=== PATIENT | male | born 1940 | race Caucasian/White ===

== ENCOUNTER 2016-06-28 10:00 | Inpatient (IN) | payer MEDICARE, OTHER ==
[~2016-06-28] VITALS: Ht 167.6 cm; Wt 63.6 kg
--- NOTE | ~2016-06-28 | OR ---
PATIENT'S NAME: JOLEEN CURTIS [facility] AGE: 75 Y [address] ROOM: [address] [address] LOCATION: [facility] ADMIT DATE: 07/04/2016 OR/Procedure Report DISCHARGE DATE: FAMILY PHYSICIAN: Harlan Barba MD ATTENDING PHYSICIAN: Elizabeth Gan SURGEON: Elizabeth Gan MD HELPER COORDINATOR: DATE OF PROCEDURE: 07/04/2016 PREOPERATIVE DIAGNOSIS: Cervical spinal stenosis with spinal cord compression C4-C5, C5-C6, and C6-C7. POSTOPERATIVE DIAGNOSIS: Cervical spinal stenosis with spinal cord compression C4-C5, C5-C6, and C6-C7. OPERATION PROPOSED AND PERFORMED: 1. Anterior cervical microdiskectomy C4-C5, C5-C6, and C6-C7. 2. Anterior cervical fusion C4-C5, C5-C6, and C6-C7. 3. Allograft. 4. Instrumentation/plating using the Inion absorbable plate. 5. Microscope. 6. Fluoroscopy with interpretation. DESCRIPTION OF PROCEDURE: Under general anesthesia, the patient was positioned supine. The neck and upper chest were prepped and draped in the usual fashion. A curvilinear incision was then carried out extending from the anterior border of the sternomastoid muscle into the midline with a slanted incision and the platysma was incised along this line. Next, the dissection was continued in the plane between the sternomastoid muscle and the strap muscle. The strap muscle, esophagus, trachea were reflected away from the midline, brought us to the prevertebral fascia. We made sure we were working medial to the carotid artery. We got to the prevertebral fascia. Prevertebral fascia was cauterized and incised, got us to the vertebral bodies and disc spaces. The disc spaces were almost nonexistent, pretty narrow. We were able, however, to put spinal needles in the disc spaces and confirmed the C4-C5, C5-C6, and C6-C7 disc spaces. These disc spaces were marked by making an incision into them. Next, the longus colli muscles were then dissected away from their attachments to the vertebral bodies on both sides and the belt sander stone self-retaining retractors were then used for retraction making sure that the transverse blades were on the longus colli muscles. Next, starting at the C4-C5 level, we went ahead and took out as much disc material that we could take out primarily because the disk space was quite narrow and almost nonexistent. This was carried out at the three levels. Next, the distraction rods were then screwed into the C4, C5, C6, and C7 vertebral bodies starting at the C6-C7 level. We did distract the disk space, brought in the microscope PATIENT'S NAME: JOLEEN CURTIS [facility] AGE: 75 Y [address] ROOM: [address] [address] LOCATION: [facility] ADMIT DATE: 07/04/2016 OR/Procedure Report DISCHARGE DATE: FAMILY PHYSICIAN: Harlan Barba MD ATTENDING PHYSICIAN: Elizabeth Gan with the aid of the microscope. We continued moving the small disc material that we had left using initially the 1 mm Kerrison and we were able to further distract the disc space to give us more room to walking. We then continued removing the disk as we got close to the dura. There were very prominent posterior osteophytes that we had to drill through in order to be able to decompress the dura as well as the spinal cord and drilling was carried out under the microscope. After that was done, we went ahead and removed the posterior longitudinal ligament and on removing that, we could see the dura and we took out more of the portions of the vertebral body, which we will call a partial vertebrectomy both at the C6 and C7 vertebral bodies using Kerrison rongeur and also drilling some of that out. After we had finished this, we could see the dura very well as well as we could see that the dura was very well decompressed. After that was done, we did put in some westley soaked in thrombin. We then directed our attention to the C5-C6 level. A similar thing was carried out and the findings were similar except that the disk space was much narrow at this level but not significantly where the osteophyte were more prominent. I did the same thing by drilling of the osteophytes and drilling of portions of the vertebral body in order to adequately decompress the dura. A similar procedure was carried out at the C4-C5 level. After this had been done, the wound was thoroughly irrigated with bacitracin irrigation. We then got the sizer for the allograft, tapped it into the empty disc spaces and got the appropriate allograft, which we then tapped into the now empty disc spaces at the C4-C5, C5-C6, and C6-C7 levels. After that was done, I should point out that the distraction was removed. It was released after each allograft was tapped in. After that was done, the distraction rods were removed. We then removed the osteophytes from the C4-C5, C5-C6, and C6-C7 disc levels in the vertebral bodies and also removed, got the soft tissue out. After we had done that, we then used the inion template. We then were able to put that for the C5-C6 and C6-C7 levels inching it inferiorly. Unfortunately, vertebral bodies were not very tall, however we were able to manage to put a two-level inion plate to fix it onto the C5-C6 and C6-C7 levels and then what we did in was we slightly slid it down a bit so as to give us some room in the superior portion of the C5 vertebral body. We then used a much smaller plate and fixed these into this dissection. Unfortunately, the plate slanted a bit and consequently the screws that were supposed an inferior hole. An inferior hole on the right side was directly into the allograft, so we did not put any through this, but we did secure the plate with three other screws and at the end, the plate seemed quite firm as was the other plate that was used. After this was done, we got a lateral x-ray of the cervical spine under fluoroscopy, which showed that the plate as well as the grafts and screws were in good position. The wound was then thoroughly irrigated with bacitracin irrigation and closed in layers, first the platysma, then the skin. The patient tolerated the procedure well and was taken to the recovery room. PATIENT'S NAME: JOLEEN CURTIS [facility] AGE: 75 Y [address] ROOM: [address] [address] LOCATION: [facility] ADMIT DATE: 07/04/2016 OR/Procedure Report DISCHARGE DATE: FAMILY PHYSICIAN: Harlan Barba MD ATTENDING PHYSICIAN: Elizabeth Gan MD THIERRY CASTRO/modl /[id number] d: 07/04/162109 t: 07/14/16 1320, OPERATIVE SUMMARY
--- NOTE | ~2016-06-28 | CON ---
PATIENT'S NAME: JOLEEN CURTIS [facility] AGE: 75 Y [address] ROOM: [place] [address] LOCATION: [facility] ADMIT DATE: 07/04/2016 Consultation DISCHARGE DATE: 07/06/2016 FAMILY PHYSICIAN: Harlan Barba MD ATTENDING PHYSICIAN: Elizabeth Gan DATE OF CONSULTATION: 07/05/2016 REFERRING PHYSICIAN: Kenneth Allen MD REASON FOR CONSULT: Left arm numbness and tingling. HISTORY OF PRESENT ILLNESS: This is a 75-year-old male admitted to [facility] for cervical spinal stenosis, postop cervical microdiskectomy and fusion of C4 to C5, C5 to C6, and C6 to C7. Preoperatively, the patient was found to have decreased blood pressures in his left arm compared to his right arm. The patient reports having numbness and tingling in his left arm and hand that he has been experiencing for years. The patient does have a smoking history for a total of 75-year [id number] history. The patient denies any history of diabetes mellitus, TIA, claudication, edema, or nonhealing wounds. He does report having recent carotid duplex which was obtained in the outpatient setting. The patient reports that this duplex was within normal limits and he was not referred. He denies any chest pain, shortness of breath, lightheadedness, dizziness, nausea, vomiting, diarrhea, or abdominal pain. PAST MEDICAL HISTORY: Arthritis, cervical spinal stenosis. SURGICAL HISTORY: Cervical microdiskectomy and fusion. FAMILY HISTORY: Mother with lung cancer. SOCIAL HISTORY: A 1-1/4-siht-ctg-day smoker for 50 years. He also reports drinking 4 drinks per day 7 days a week. He denies any illicit drug use. CURRENT MEDICATIONS: Vitamin C 500 mg daily. ALLERGIES: NO KNOWN ALLERGIES. PATIENT'S NAME: JOLEEN CURTIS [facility] AGE: 75 Y [address] ROOM: [place] [address] LOCATION: [facility] ADMIT DATE: 07/04/2016 Consultation DISCHARGE DATE: 07/06/2016 FAMILY PHYSICIAN: Harlan Barba MD ATTENDING PHYSICIAN: Elizabeth Gan REVIEW OF SYSTEMS: Ten-point review of systems completed, positives addressed in history of presenting illness. PHYSICAL EXAMINATION: VITAL SIGNS: Temperature 97.9, heart rate 70, respiratory rate 16, blood pressure 148/79, oxygen saturations 94%. GENERAL: The patient is in no acute distress. He is alert and oriented x3 and talkative. SKIN: Warm, pink, and dry. No rashes. He does have a surgical dressing to his neck. HEENT: Head; normocephalic, atraumatic. Ears without drainage. Eyes, sclerae white and conjunctivae pink. Extraocular movements intact. PERRLA. Nose without drainage. Throat; oral mucosa pink and moist, no exudate or erythema. NECK: Not assessed due to recent surgery and present dressing. RESPIRATORY: Unlabored. CARDIOVASCULAR: Regular rate and rhythm. GASTROINTESTINAL: Soft and nontender. EXTREMITIES: Radial pulses are 2+ bilaterally when arms are rested at his side. The left radial pulse appears diminished or disappeared with elevation and manipulation of his left arm. He has no cyanosis, no ulcers, and no edema. NEUROLOGICAL: No focal deficits. Strength equal bilaterally, 5/5. IMPRESSION AND PLAN: Subclavian artery stenosis or compression. Exam findings are suggestive of a compromised subclavian artery. The patient denies pain but reports numbness and tingling. At this time, the patient is tolerating his symptoms and he is hesitant to want further intervention. We did discuss the importance of smoking cessation, and I also discussed with him multiple times that he may follow up with Dr. Allen in clinic to further evaluate the extremity, especially if the left arm symptoms become bothersome or he has further complications. From a vascular standpoint, we would recommend a daily baby aspirin. Continue to monitor the extremity for any cyanosis, increased pain, or poor wound healing. Thank you for your consultation and for allowing us to participate in the care of this patient. ANA IZAGUIRRE APRN FOR KENNETH ALLEN MD PATIENT'S NAME: JOLEEN CURTIS [facility] AGE: 75 Y [address] ROOM: [place] [address] LOCATION: [facility] ADMIT DATE: 07/04/2016 Consultation DISCHARGE DATE: 07/06/2016 FAMILY PHYSICIAN: Harlan Barba MD ATTENDING PHYSICIAN: Elizabeth Gan /[id number] d: 07/06/16 2044 t: 07/11/16 1159, CONSULTATION REPORT
--- NOTE | ~2016-06-28 | DS ---
PATIENT'S NAME: JOLEEN CURTIS [facility] AGE: 75 Y [address] ROOM: [address] [address] LOCATION: [facility] ADMIT DATE: 07/04/2016 Discharge Summary DISCHARGE DATE: 07/06/2016 FAMILY PHYSICIAN: Harlan Barba MD ATTENDING PHYSICIAN: Elizabeth Gan DISCHARGE SUMMARY: This 75-year-old male, who had spinal cord compression from cervical spondylosis at C4-5, C5-6, C6-7, was admitted electively for decompression of the spinal cord. Then, an anterior cervical diskectomy and fusion at C4-5, C5-6, C6-7 with partial vertebrectomy. He was taken to the operating room on the day of admission and had the procedure done uneventfully. Postoperatively, he did quite well. He did have some difficulty swallowing, but was able to tolerate his meals reasonably well and also had some slight hoarseness of his voice. At the time of discharge, he was ambulating without any difficulty. The plan was to discharge him and see me in the clinic 3 weeks from the time of discharge. He is to see his family doctor for removal of the skin melodie in a week from the time of discharge. 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
[~2016-06-28 10:00] MED LIST: VITAMIN C500 M2 PO
--- NOTE | 2016-07-04 17:27 | NUR ---
Significant Event: From PACU at 1530. Dressing to R) anterior neck with small drainage. No void at this time. Percocet 1 tab at 1650. Family at bedside. Tolerating Jello and water at this time. C/O tingling to L) fingers, Dr Gan aware. Remains on 2L 02 at this time. Follow up:
--- NOTE | 2016-07-05 04:02 | NUR ---
Patient alert and oriented, forgetful at times and speech is sometimes hard to understand, no c/o pain this shift, has denied need for pain medication, ambulated well one assist with walker and gaitbelt to bathroom, small amount of drainage present to dressing, c/o of numbness and tingling in the left hand and fingers, wants to go home, has not really rested tonight
--- NOTE | 2016-07-05 17:23 | NUR ---
Significant Event: Ambulates with SBA and walker. Dressing to R) neck intact with old drainage. Voids without difficulty. Percocet 1 tab at 1520. C/O numbness/tingling to L) hand. Follow up: Plans to dismiss tomorrow
--- NOTE | 2016-07-05 18:15 | NUR ---
TIMBO TO PATIENT AND HIS DAUGHTER AT THE BEDSIDE. INTRODUCED CM AND OUR ROLE. PATIENT LIVES ALONE ON OWN HOME. HIS DAUGHTER (FAIZA) LIVES NEAR BY AND SHE IS PLANNING ON HELPING JOLEEN ONCE HE IS DISCHARGED HOME. SHE WOULD LIKE TO MAKE SURE THAT HE CAN WALK UP STAIRS BEFORE HE IS DISCHARGE BECAUSE HE HAS STEPS THAT HE HAS TO GO UP TO GET INTO HIS HOUSE. I SPOKE TO YOLANDA THE CHARGE NURSE AND SHE IS GOING TO HAVE THE STAFF WORK WITH PATIENT ON DOING THE STAIRS BEFORE HE IS DISCHARGED. HIS DAUGTHER REPORTS THAT HE DOES NOT NEED ANY DME, SHE TELLS ME HE WILL NOT USE IT AND HE LIVES IN A [place]IL[place] AND THERE WOULD NOT BE ENOUGH ROOM FOR HIM TO USE IT. FAIZA AND JOLEEN DO NOT ANTICPATE ANY DISCHARGE NEEDS. THEY ANTICIPATE JOLEEN WILL DISCHARGE TOMORROW. THEY WILL STAY IN THE [place] ARE[place] FOR A DAY TO MAKE SURE HE IS DOING OK BEFORE THEY GO HOME TO [place].
--- NOTE | 2016-07-06 05:03 | NUR ---
POD#1 ACDF C5-7, DSG CDI AND WAS CHANGED ON DAY SHIFT YESTERDAY, JAZMINE MIDLINE PIV, UP WITH 1/FWW/GAIT BELT, VS WNL, RA SATS IN THE 90'S, LEFT HAND WITH N/T THAT IS STILL PRESENT AFTER SX, RAN A TEMP @2300 OF 100.4 AND ENCOURAGED THE IS AND WAS ABLE TO BRING TEMP DOWN TO 98.8 WITHIN 15MINUTES, VERY POOR COUGH, PATIENT IS A SMOKER AND REFUSES TO USE THE IS BUT WAS ABLE TO CLEAR ALOT OF SPUTUM WITH DEEP BREATING AND COUGHING. PATIENT ALSO DOES NOT LIKE TO TAKE PAIN MEDICATIONS AND WAS GIVEN PERCOCET LD@2014 AND WILL REASSESS THIS AM BEFORE SHIFT CHANGE. PATIENTS DAUGHTER IS A PA AND WILL BE SPENDING THE NEXT WEEK AT HER PARENTS HOME TAKING CARE OF HIM ON DISCHARGE, PLANNED DC TODAY IF CLEARED BY NEURO.
[2016-07-06] MEDS ORDERED: PERCOCET 5-3251 EACH PO (12:34)
--- NOTE | 2016-07-06 13:53 | NUR ---
Patient alert and oriented x3. Vital signs stable. Up adlib in room. Removed IV from L) upper arm. Percocet 5/325mg 1 tab given at 1210 for pain. Dressing changed to anterior neck prior to dismissal. Patient was wheeled to [facility] for dismissal home with family at 1340.
== END 2016-07-06 13:50 | disposition disaster alternative care site (69) | DRG 473 ==
LOC: G3N 07-04 07:02
PROVIDERS: ADMIT Neurological Surgery
PROC: 0RB30ZZ Excision of Cervical Vertebral Disc, Open Approach (ICD-10-PCS; principal; 2016-07-04)
PROC: 0RG20K0 Fusion of 2 or more Cervical Vertebral Joints with Nonautologous Tissue Substitute, Anterior Approach, Anterior Column, Open Approach (ICD-10-PCS; principal; 2016-07-04)
DX: M50.021 Cervical disc disorder at C4-C5 level with myelopathy (principal); M48.02 Spinal stenosis, cervical region; F17.210 Nicotine dependence, cigarettes, uncomplicated
CPT/HCPCS: C1713; C1751; J0131; J0690; J1100; J2001; J2405; J7030